=== PATIENT | male | born 1965 | race Caucasian/White ===

== ENCOUNTER 2024-01-11 21:38 | Emergency (ER) | payer MEDICAID ==
[~2024-01-11] VITALS: Ht 160 cm; Wt 81.6 kg
[2024-01-11 21:43] VITALS: BP_SYST 98; PULSE 85; RESP 12; TEMP 98; O2SAT 99
[2024-01-11] MEDS: NACL 0.9% 1,000 ML IV ONE (22:19)
[2024-01-11 22:33] LABS: HEMOGLOBIN 12.4 g/dL (14.0-18.0)
[2024-01-11 22:44] LABS: HEMATOCRIT 35.8 % (36-54); MEAN CORPUSCULAR HEMOGLOBIN 37 pg (27-31); MEAN CORPUSCULAR HGB CONC 35 % (32-36); MEAN CORPUSCULAR VOLUME 105 fL (79.0-98.0); PLATELET COUNT (AUTO) 153 K/uL (130-430); RED BLOOD CELL COUNT(AUTO) 3.41 MIL/uL (4.2-6.2); RED CELL DISTRIBUTION WIDTH 13.1 % (9.0-15.0); WHITE BLOOD COUNT (AUTO) 3.6 K/uL (4.8-10.8)
[2024-01-11 22:52] LABS: ALBUMIN 3.9 g/dL (3.4-4.8); BILIRUBIN,DIRECT 0.3 mg/dL (0.0-0.3); CALCIUM 8.2 mg/dL (8.4-11.0); CREATININE 0.54 mg/dL (0.55-1.30); POTASSIUM 3.5 mmol/L (3.5-5.1); TOTAL BILIRUBIN 0.5 mg/dL (0.0-1.0); TOTAL PROTEIN, SERUM 7.5 g/dL (6.4-8.3)
[2024-01-11 23:13] LABS: BAND % (MANUAL) 1 % (0-6); LYMPHOCYTES % (MANUAL) 61 % (20-46)
[2024-01-11 23:14] LABS: BASOPHILS % (MANUAL) 0 % (0-2); EOSINOPHILS % (MANUAL) 3 % (0-7); MONOCYTES % (MANUAL) 7 % (0-11); PLATELET ESTIMATE ADEQUATE (ADEQUATE)
[2024-01-12 03:36] VITALS: BP_SYST 120; PULSE 81; RESP 20; TEMP 98; O2SAT 95
== END 2024-01-12 03:36 | disposition home or self-care (01) ==
LOC: SED 21:38
DX: F10.129 Alcohol abuse with intoxication, unspecified (principal); R41.82 Altered mental status, unspecified; R11.0 Nausea; R53.1 Weakness; Y90.8 Blood alcohol level of 240 mg/100 ml or more
CPT/HCPCS: 99285; 96360; 85027; 80076; 80048; 83690; 85007; 36415; 93005; 82948; G0482; J7030